=== PATIENT | female | born 1955 | race Caucasian/White ===

== ENCOUNTER 2016-09-20 00:24 | Emergency (ER) | payer OTHER ==
[~2016-09-20] VITALS: Ht 154.9 cm; Wt 79.5 kg
[2016-09-20 01:07] LABS: APPEARANCE,URINE CLOUDY (CLEAR); GLUCOSE, URINE (UA) NEGATIVE (NEGATIVE); KETONES,URINE NEGATIVE (NEGATIVE); LEUKOCYTE ESTERASE ,URINE SMALL (NEGATIVE); OCCULT BLOOD,URINE LARGE (NEGATIVE); PROTEIN,URINE SEE CONFIRM (NEGATIVE)
[2016-09-20 01:18] LABS: RBC,URINE 51-100 /HPF (0-2); SQUAMOUS EPITHELIAL CELL,UR Few /LPF (None Seen)
[2016-09-20 01:19] LABS: SULFOSALICYLIC ACID,URINE 1+ (Negative)
[2016-09-20 02:56] VITALS: BP 124/59
[2016-09-20] MEDS ORDERED: PHENAZOPYRIDINE HCL 100 MG TABLET PO ONE (03:15)
[2016-09-20] MEDS ORDERED: CEPHALEXIN MONOHYDRATE 500 MG CAPSULE PO ONE (03:15)
== END 2016-09-20 03:27 | disposition home or self-care (01) ==
LOC: EMS 00:25
DX: N39.0 Urinary tract infection, site not specified (principal)
CPT/HCPCS: 87086; 99284